=== PATIENT | male | born 1965 | race Caucasian/White ===

== ENCOUNTER 2019-02-23 12:32 | Emergency (ER) | payer SELFPAY ==
[~2019-02-23] VITALS: Ht 165.1 cm; Wt 100.0 kg
[2019-02-23 12:46] VITALS: Ht 165.1 cm; Wt 100.0 kg
[2019-02-23] MEDS ORDERED: LIDOCAINE/MYLANTA 40 ML BTL PO STA (14:54)
[2019-02-23] MEDS ORDERED: FAMOTIDINE 20 MG TAB PO STA (14:54)
[2019-02-23 15:09] VITALS: BP 129/91; PULSE 82; RESP 16
== END 2019-02-23 15:12 | disposition home or self-care (01) ==
LOC: E/R 12:32
DX: R07.9 Chest pain, unspecified (principal)
CPT/HCPCS: 71045; 80048; 84484; 85025; 93005